=== PATIENT | male | born 1985 | race Caucasian/White ===

== ENCOUNTER 2019-10-08 23:11 | Inpatient (IN) | payer MEDICAID ==
[~2019-10-08] VITALS: Ht 185.4 cm; Wt 94.5 kg
[2019-10-08 23:38] LABS: HEMATOCRIT 46.1 % (42.0-54.0); HEMOGLOBIN 15.7 g/dL (13.5-17.5); LYMPHOCYTES 47.1 % (15-50); MCH 29.6 pg (26.0-34.0); MCHC 34.1 g/dL (31.0-37.0); MCV 86.8 fL (80.0-100.0); MEAN PLATELET VOLUME 9.4 fL (7.4-10.4); NEUTROPHILS 44.8 % (40-80); PLATELET COUNT 221 10x3/uL (130-400); RBC 5.31 10x6/uL (4.20-6.10); RDW 12.9 % (11.5-14.5); WBC 7.5 10x3/uL (4.8-10.8)
--- NOTE | 2019-10-08 23:38 | NUR ---
CONTACTED SHAHEEN AT [facility]. RECOMMENDS NOT USING ANTIDOTE THYSOSTIGMINE RATHER TO TREAT S/S. NOT CONCERNED MUCH FOR AMBIEN HOWEVER, BENADRYL WILL NEED TO MONITOR FOR SEIZURE LIKE ACTIVITY, WIDENING QRS AND TREAT WITH BICARB, ANTICHOLENGERIC SIDE EFFECTS AND TREAT WITH BENZO. HYPOTENSION TREAT WITH FLUIDS AND POSITION.ADVISED NOT TO USE BETA BLOCKERS FOR PRESSURE RATHER TO USE NOREPI. RATHER SEE SEDATED OVER AGITATED. INFORMED THAT IF TYLENOL AND SALICYLATES ARE ELEVATED TO [facility].
[2019-10-08 23:43] LABS: BILIRUBIN NEGATIVE (NEGATIVE); GLUCOSE NEGATIVE (NEGATIVE); KETONE NEGATIVE (NEGATIVE); NITRITE NEGATIVE (NEGATIVE); SPECIFIC GRAVITY 1.015 (1.005-1.020); UROBILINOGEN NORMAL (NORMAL)
[2019-10-08 23:45] LABS: CALC OSMOLALITY 286 mosm/kg (275-300); CALCIUM 8.3 mg/dL (8.5-10.1); CARBON DIOXIDE 25.8 mmol/L (21.0-32.0); CHLORIDE - SERUM 108 mmol/L (98-107); CREATININE - SERUM 0.9 mg/dL (0.6-1.3); GLUCOSE 105 mg/dL (74-106); POTASSIUM - SERUM 3.3 mmol/L (3.5-5.1); SODIUM 145 mmol/L (136-145); UREA NITROGEN 7 mg/dL (7-18); eGFR NON AFRICAN AMERICAN > 90 mL/min (90-120)
[2019-10-08 23:51] VITALS: BP 132/80
[2019-10-08 23:52] LABS: UDS - AMPHET NEGATIVE QUAL (NEGATIVE); UDS - BARB NEGATIVE QUAL (NEGATIVE); UDS - BENZO NEGATIVE QUAL (NEGATIVE); UDS - COCAINE NEGATIVE QUAL (NEGATIVE); UDS - OPIATE NEGATIVE QUAL (NEGATIVE); UDS - PCP NEGATIVE QUAL (NEGATIVE); UDS - THC NEGATIVE QUAL (NEGATIVE)
[2019-10-09] VITALS (21 sets, daily range): BP systolic 90–137; BP diastolic 49–93; Ht 185.4 cm; Wt 94.5 kg
[2019-10-09] LABS: ALBUMIN 3.6 g/dL (3.4-5.0); ALKALINE PHOSPHATASE 69 U/L (30-120); ALT (SGPT) 17 U/L (10-68); BILIRUBIN - TOTAL 0.18 mg/dL (0.2-1.3); LIPASE 153 U/L (73-393); MAGNESIUM - SERUM 2.2 mg/dL (1.8-2.4); PRO BNP 37 pg/mL (0-125); PROTEIN - SERUM 7.4 g/dL (6.4-8.2); THYROID STIMULATING HORMONE 1.63 uIU/mL (0.36-3.74); TROPONIN-I < 0.017 ng/mL (0.000-0.060)
--- NOTE | 2019-10-09 00:07 | NUR ---
SLEEPIMG SOUNDLY MOUTH BREATHING O2 SAT 78 ON NC SWITCHED TO 100 PERCENT NON REBREATHER WITH SAT 98
--- NOTE | 2019-10-09 00:26 | NUR ---
PATIENT INTUBATED WITH 7.5 TUBE 22@ LIP.TOLERATED WELL
--- NOTE | 2019-10-09 01:30 | NUR ---
PT ARRIVED TO UNIT ACCOMPANIED BY HOSPITAL STAFF. ASSESSMENT COMPLETED, SEE FLOWSHEET. PIV IN LEFT WRIST AND RIGHT AC INFUSING, SEE IV FLOWSHEET. PT SEDATED ON VENT, SOFT WRIST RESTRAINTS IN PLACE. JENKINS PLACED. WILL CONTINUE TO MONITOR.
--- NOTE | 2019-10-09 03:00 | NUR ---
NO ACUTE DISTRESS NOTED AT THIS TIME, WILL CONTINUE TO MONITOR.
--- NOTE | 2019-10-09 05:00 | NUR ---
PT SEDATED ON VENT, ATTEMPTING TO SIT UP AND PULL AT ETT. RESTRAINTS REEVALUATED. WILL CONTINUE TO MONITOR.
[2019-10-09 06:39] LABS: BASOPHILS 0.1 % (0-2); EOSINOPHILS 2.4 % (0-7); HEMATOCRIT 41.3 % (42.0-54.0); HEMOGLOBIN 13.9 g/dL (13.5-17.5); IMMATURE GRANULOCYTES 0.1 % (0-5); LYMPHOCYTES 34.9 % (15-50); MCHC 33.7 g/dL (31.0-37.0); MEAN PLATELET VOLUME 9.6 fL (7.4-10.4); MONOCYTES 8.6 % (2-11); NEUTROPHILS 53.9 % (40-80); PLATELET COUNT 220 10x3/uL (130-400); RBC 4.64 10x6/uL (4.20-6.10); RDW 13.3 % (11.5-14.5); WBC 7.4 10x3/uL (4.8-10.8)
[2019-10-09 06:41] LABS: CALC OSMOLALITY 284 mosm/kg (275-300); CALCIUM 7.9 mg/dL (8.5-10.1); CARBON DIOXIDE 27.4 mmol/L (21.0-32.0); CHLORIDE - SERUM 108 mmol/L (98-107); CREATININE - SERUM 0.8 mg/dL (0.6-1.3); GLUCOSE 102 mg/dL (74-106); POTASSIUM - SERUM 3.6 mmol/L (3.5-5.1); SODIUM 144 mmol/L (136-145); UREA NITROGEN 8 mg/dL (7-18); eGFR NON AFRICAN AMERICAN > 90 mL/min (90-120)
[2019-10-09 06:46] LABS: ALBUMIN 3.2 g/dL (3.4-5.0); ALKALINE PHOSPHATASE 58 U/L (30-120); ALT (SGPT) 20 U/L (10-68); BILIRUBIN - TOTAL 0.19 mg/dL (0.2-1.3); MAGNESIUM - SERUM 1.9 mg/dL (1.8-2.4); PROTEIN - SERUM 6.7 g/dL (6.4-8.2)
--- NOTE | 2019-10-09 11:00 | NUR ---
REASSESSMENT COMPLETE, NO CHANGES NOTED, PT AWAKE AT THIS TIME, FOLLOWS COMMANDS, ALL PPP, VSS, WILL CON'T TO MONITOR
--- NOTE | 2019-10-09 11:53 | NUR ---
1140-PATIENT SELF-EXTUBATED
--- NOTE | 2019-10-09 12:10 | NUR ---
PT SELF EXTUBATED AT THIS TIME. DR SWANN AT BEDSIDE. GIVEN UDPATE
--- NOTE | 2019-10-09 12:35 | NUR ---
DR. CHILEL NOTIFIED AND SITTER ORDERED. SITTER AT BEDSIDE. NOTIFIED CHARGE NURSE AND ATTENDING IN REGARDS TO ASSESSMENT FINDINGS. PT REPORTS " I HAD A PANIC ATTACK, TOOK A BUNCH OF PILLS AND WOKE UP HERE AT THE HOSPITAL. RESOURCES GIVEN TO PT AND SAFETY PLAN INITIATED.
--- NOTE | 2019-10-09 13:00 | NUR ---
PT AWAKE AT THIS TIME, DENIES ANY WANTS OR NEEDS, VSS, CALL LIGHT IN REACH
[2019-10-09 14:28] LABS: APTT 29.1 SECONDS (22.8-39.4); INR 1.07 (0.85-1.17); PROTIME 13.9 SECONDS (11.6-15.0)
[2019-10-09 14:29] LABS: D-DIMER-QUANTITATIVE 0.35 ug/mLFEU (0.20-0.54)
[2019-10-09 14:38] LABS: FERRITIN 149 ng/mL (3-244); LDH 147 U/L (85-227)
[2019-10-09 14:47] LABS: C-REACTIVE PROTEIN < 0.2 mg/dL (0.0-0.9)
--- NOTE | 2019-10-09 15:15 | NUR ---
REASSESSMENT COMPLETE, CHANGES NOTED IN FLOW SHEET, PT RESTING COMFORTABLY AT THIS TIME, WILL CON'T TO MONITOR
--- NOTE | 2019-10-09 18:19 | MORECARE ---
CASE MANAGEMENT DISCHARGE SUMMARY PATIENT: ANA ZHU UNIT: [id number] ADM DATE: 10/09/19 AGE: 34 : 81 SEX: M ROOM/BED: D.2310 AUTHOR: ELLIE,DOC PHYSICIAN: REFERRING PHYSICIAN: DEEJAY BAZAN MD DATE OF SERVICE: 10/09/19 Discharge Plan Patient Name: ANA ZHU Facility: [facility]:[place] : 1985 Planned Disposition: Home Anticipated Discharge Date: Discharge Date: Expected LOS: Initial Reviewer: [email or web address] Initial Review Date: 10/09/2019 Generated: 10/09/19 7:18 pm Comments DCP- Discharge Planning Updated by [email or web address]: Thelma Sierra on 10/09/19 5:[address] Patient Name: ANA ZHU Admission Status: ER Accout number: [id number] Admission Date: 10-09-2019 : 1985 Admission Diagnosis: Attending: HENRY BAZAN Current LOS: 1 Anticipated DC Date: Planned Disposition: Home [place]: [place] [employer] Discharge Planning Comments: CM met with patient to complete initial dc planning assessment. CM educated patient on the CM role and verbal consent given by patient to complete assessment. Patient lives at home with family. Patient is independent. At discharge patient plans to return home and feels this is a safe discharge. CM discussed availability of home health, rehab services, and medical equipment. Patient will have family to transport home. Patient denied known discharge needs at this time. Patient is planning on following up with local AA chapter. CM will continue to follow and will assist as needed with dc plans/needs. Account Representative: Thelma Sierra DCPIA - Discharge Planning Initial Assessment Updated by [id number]: Thelma Sierra on 10/09/19 6:11 pm * Is the patient Alert and Oriented? Yes * Preadmission Environment Home with Family * ADLs Independent * Equipment None * List name and contact numbers for known caregivers / representatives who currently or will assist patient after discharge: TAZ ZHU - [facility] - [phone] * Verbal permission to speak to the caregivers and representatives has been obtained from the patient. Yes * Community resources currently utilized None * Additional services required to return to the preadmission environment? No * Can the patient safely return to the preadmission environment? Yes * Has this patient been hospitalized within the prior 30 days at any hospital? No Patient Name: ANA ZHU Page [id number] at 1819 All edits/amendments must be made on the electronic document DICTATION DATE: 10/09/191817 JEWEL HOLE DRILLER: RONNIE 10/09/191817 RPT#: [id number] DC DATE: STATUS: ADM IN [facility] [address] [place] [address] END OF REPORT
--- NOTE | 2019-10-09 19:30 | NUR ---
REPORT RECIEVED AND ROUNDING COMPLETE. CYNDI LAYING IN BED IN LOW FOWLERS, ASKED FOR A GLASSES OF ICE WATER, GIVEN. PATIENT HAS A RIGHT PIV THAT IS SALINE LOCKED AT THIS TIME. CYNDI STATES HE IS IN NO PAIN AND HAS NO THOUGHTS OF HURTING HIMSELF. NO DISTRESS NOTED. CALL LIGHT WITHIN REACH AND BED IN LOWEST LOCKED POSITION.
--- NOTE | 2019-10-09 21:40 | NUR ---
CALLED DR. DHALIWAL PER MISSION COMMANDER TO CLARIFY ORDERS OF SUICIDE WATCH, GAVE ORDER THAT SITTER IS NO NEEDED AT THIS TIME. WILL FOLLOW ORDER.
[2019-10-10] VITALS: BP 122/78
[2019-10-10 04:00] VITALS: BP 117/70
[2019-10-10 04:50] LABS: BASOPHILS 0.4 % (0-2); HEMATOCRIT 43.3 % (42.0-54.0); HEMOGLOBIN 14.5 g/dL (13.5-17.5); IMMATURE GRANULOCYTES 0.1 % (0-5); LYMPHOCYTES 40.2 % (15-50); MCH 29.8 pg (26.0-34.0); MCHC 33.5 g/dL (31.0-37.0); MCV 88.9 fL (80.0-100.0); MONOCYTES 11.5 % (2-11); NEUTROPHILS 41.8 % (40-80); PLATELET COUNT 217 10x3/uL (130-400); RBC 4.87 10x6/uL (4.20-6.10); RDW 13.1 % (11.5-14.5); WBC 7.7 10x3/uL (4.8-10.8)
[2019-10-10 05:09] LABS: ALBUMIN 3.2 g/dL (3.4-5.0); ALKALINE PHOSPHATASE 71 U/L (30-120); ALT (SGPT) 20 U/L (10-68); BILIRUBIN - TOTAL 0.53 mg/dL (0.2-1.3); CALC OSMOLALITY 275 mosm/kg (275-300); CALCIUM 8.4 mg/dL (8.5-10.1); CARBON DIOXIDE 29.5 mmol/L (21.0-32.0); CHLORIDE - SERUM 105 mmol/L (98-107); GLUCOSE 95 mg/dL (74-106); POTASSIUM - SERUM 3.4 mmol/L (3.5-5.1); SODIUM 139 mmol/L (136-145); UREA NITROGEN 8 mg/dL (7-18); eGFR NON AFRICAN AMERICAN 90 mL/min (90-120)
--- NOTE | 2019-10-10 07:27 | NUR ---
PT AWAKE AND ORIENTED, STATES HE SHOULD BE GETTING OUT OF HERE TODAY. WAITING ON DR. YANG APPROVAL, WILL CNT TO KEEP PT UPDATED. CL INR EACH,S RX2. NO FURTHER QUESTIONS, CONCERNS, OR COMPLAINTS AT THIS TIME.
[2019-10-10 09:14] VITALS: BP 124/73
--- NOTE | 2019-10-10 09:57 | NUR ---
PT ALERT AND ORIENTED, D/C ORDERS IN. NO COMPLAITNS/CONCERNS AT THIS TIME.
--- NOTE | 2019-10-10 11:42 | NUR ---
DISHCARGE INSTRUCTIONS GIVEN. PT SHOWERING THEN LEAVING WITH HIS WHOS IN ROOM.
--- NOTE | 2019-10-10 12:08 | NUR ---
PT ESCORTED O UT VIA WHEELCHIAR TO POV, DRIVING. I/VS OUT ITP INTACT.
--- NOTE | 2019-10-10 14:39 | CN ---
PATIENT NAME:ANA ZHU MEDICAL RECORD: [id number] : [birth year] LOCATION:D. D.2106 ADMIT DATE: 10/09/19 ACCOUNT: [id number] CONSULTING PHYSICIAN: LALY CHILEL MD REFERRING PHYSICIAN: DEEJAY BAZAN MD DATE OF CONSULTATION: 10/09/2019 IDENTIFYING DATA: The patient is 34 years old and he is admitted to the hospital on a voluntary basis. CHIEF COMPLAINT: Overdose. HISTORY OF PRESENT ILLNESS: The patient presented to the Emergency Room last night. He had a blood alcohol level of 252 and had taken a large amount of Ambien and Benadryl. He was briefly intubated to protect his airway. He is now extubated, alert, cooperative and talkative. He denies neurovegetative depressive symptoms and in fact does not display any. He admits that he drinks too much, but it is mostly binge drinking, which he did last night. He has no recollection of taking the Ambien or the Benadryl and he says that he has no recollection of wanting to hurt himself and he certainly does not want to do so now. He says he has a good job, 2 children and a to support and that he wants to go home and promises that he will go to Alcoholics Anonymous. I have offered him inpatient treatment and evaluation, but he has rejected this. He does not meet criteria for an involuntary stay. He has been offered residential substance abuse treatment and he has rejected this. He says he drinks some most days, but that he binge drinks and he has had significant periods of sobriety in the past and he has never had any trouble with withdrawal. He says he will come back to the hospital for treatment if he experiences withdrawal and that he intends to go to 90 Alcoholics Anonymous meetings over the next 90 days. ASSESSMENT: 1. Alcohol use disorder. 2. Status post overdose. PLAN: As above. The patient may be released when medically stabilized. Outpatient treatment at Alcoholics Anonymous is his choice of treatment. TRANSINT:[id number] Voice Confirmation ID: [id number] DOCUMENT ID: [id number] LALY CHILEL MD at 1439 CC: [id number] DICTATION DATE: 10/09/19 2986 MEAT SOAKER: 10/10/19 0307 DIS IN 10/10/19 [facility] [address] [place] [address]
--- NOTE | 2019-10-11 08:21 | MORECARE ---
CASE MANAGEMENT DISCHARGE SUMMARY PATIENT: ANA ZHU UNIT: [id number] ADM DATE: 10/09/19 AGE: 34 : 81 SEX: M ROOM/BED: D.2106 AUTHOR: ELLIEDOC PHYSICIAN: REFERRING PHYSICIAN: DEEJAY BAZAN MD DATE OF SERVICE: 10/11/19 Discharge Plan Patient Name: ANA ZHU Facility: [facility]:[place] : 1985 Planned Disposition: Home Anticipated Discharge Date: Discharge Date: 10/10/2019 Expected LOS: Initial Reviewer: [email or web address] Initial Review Date: 10/09/2019 Generated: 10/11/19 9:20 am Comments DCP- Discharge Planning Updated by [email or web address]: Thelma Sierra on 10/09/19 5:[address] Patient Name: ANA ZHU Admission Status: ER Accout number: [id number] Admission Date: 10-09-2019 : 1985 Admission Diagnosis: Attending: HENRY BAZAN Current LOS: 1 Anticipated DC Date: Planned Disposition: Home [place] Insurance: [place] [employer] Discharge Planning Comments: CM met with patient to complete initial dc planning assessment. CM educated patient on the CM role and verbal consent given by patient to complete assessment. Patient lives at home with family. Patient is independent. At discharge patient plans to return home and feels this is a safe discharge. CM discussed availability of home health, rehab services, and medical equipment. Patient will have family to transport home. Patient denied known discharge needs at this time. Patient is planning on following up with local AA chapter. CM will continue to follow and will assist as needed with dc plans/needs. Farm Equipment Technician: Thelma Sierra DCPIA - Discharge Planning Initial Assessment Updated by [email or web address]: Thelma Sierra on 10/09/19 6:11 pm * Is the patient Alert and Oriented? Yes * Preadmission Environment Home with Family * ADLs Independent * Equipment None * List name and contact numbers for known caregivers / representatives who currently or will assist patient after discharge: TZA ZHU - [facility] - [phone] * Verbal permission to speak to the caregivers and representatives has been obtained from the patient. Yes * Community resources currently utilized None * Additional services required to return to the preadmission environment? No * Can the patient safely return to the preadmission environment? Yes * Has this patient been hospitalized within the prior 30 days at any hospital? No Last DP export: 10/09/19 5:19 p Patient Name: ANA ZHU Page [phone] at 0821 All edits/amendments must be made on the electronic document DICTATION DATE: 10/11/19820 AERIAL INSTALLER: RONNIE 10/11/19820 RPT#: [id number] DC DATE:10/10/19 STATUS: DIS IN [facility] [address] [place] [address] END OF REPORT
--- NOTE | 2019-10-11 09:04 | MORECARE ---
CASE MANAGEMENT DISCHARGE SUMMARY PATIENT: ANA ZHU UNIT: [id number] ADM DATE: 10/09/19 AGE: 34 : 81 SEX: M ROOM/BED: D.2106 AUTHOR: ELLIE,DOC PHYSICIAN: REFERRING PHYSICIAN: DEEJAY BAZAN MD DATE OF SERVICE: 10/11/19 Discharge Plan Patient Name: ANA ZHU Facility: [facility]:[place] : 1985 Planned Disposition: Home Anticipated Discharge Date: Discharge Date: 10/10/2019 Expected LOS: 0 Initial Reviewer: [email or web address] Initial Review Date: 10/09/2019 Generated: 10/11/19 10:04 am Comments DCP- Discharge Planning Updated by [email or web address]: Thelma Sierra on 10/09/19 5:[address] Patient Name: ANA ZHU Admission Status: ER Accout number: [id number] Admission Date: 10-09-2019 : 1985 Admission Diagnosis: Attending: HENRY BAZAN Current LOS: 1 Anticipated DC Date: Planned Disposition: Home [place] Insurance: [place] [employer] Discharge Planning Comments: CM met with patient to complete initial dc planning assessment. CM educated patient on the CM role and verbal consent given by patient to complete assessment. Patient lives at home with family. Patient is independent. At discharge patient plans to return home and feels this is a safe discharge. CM discussed availability of home health, rehab services, and medical equipment. Patient will have family to transport home. Patient denied known discharge needs at this time. Patient is planning on following up with local AA chapter. CM will continue to follow and will assist as needed with dc plans/needs. Sharepoint Analyst: Thelma Sierra DCPIA - Discharge Planning Initial Assessment Updated by [email or web address]: Thelma Sierra on 10/09/19 6:11 pm * Is the patient Alert and Oriented? Yes * Preadmission Environment Home with Family * ADLs Independent * Equipment None * List name and contact numbers for known caregivers / representatives who currently or will assist patient after discharge: TAZ ZHU - [facility] - [phone] * Verbal permission to speak to the caregivers and representatives has been obtained from the patient. Yes * Community resources currently utilized None * Additional services required to return to the preadmission environment? No * Can the patient safely return to the preadmission environment? Yes * Has this patient been hospitalized within the prior 30 days at any hospital? No Last DP export: 10/11/19 7:21 a Patient Name: AAN ZHU Page [id number] at 0904 All edits/amendments must be made on the electronic document DICTATION DATE: 10/11/19903 MECHANICAL INSULATOR: RONNIE 10/11/19903 RPT#: [id number] DC DATE:10/10/19 STATUS: DIS IN [facility] [address] [place] [address] END OF REPORT
== END 2019-10-10 12:11 | disposition home or self-care (01) | DRG 917 ==
LOC: D.ER 23:11 → D.ICU 10-09 00:47 → D.M2 10-09 18:36
PROVIDERS: Family Medicine; Internal Medicine Pulmonary Disease; ADMIT Emergency Medicine; ATTEND Emergency Medicine
PROC: 0BH17EZ Insertion of Endotracheal Airway into Trachea, Via Natural or Artificial Opening (ICD-10-PCS; principal; 2019-10-09)
PROC: 5A1935Z Respiratory Ventilation, Less than 24 Consecutive Hours (ICD-10-PCS; 2019-10-09)
DX: T42.6X2A Poisoning by other antiepileptic and sedative-hypnotic drugs, intentional self-harm, initial encounter (principal); J96.90 Respiratory failure, unspecified, unspecified whether with hypoxia or hypercapnia; T45.0X2A Poisoning by antiallergic and antiemetic drugs, intentional self-harm, initial encounter; F41.8 Other specified anxiety disorders; E87.6 Hypokalemia; R19.7 Diarrhea, unspecified; J02.9 Acute pharyngitis, unspecified; Z72.89 Other problems related to lifestyle; Y90.8 Blood alcohol level of 240 mg/100 ml or more